=== PATIENT | male | born 1960 | race Caucasian/White ===

== ENCOUNTER 2016-05-20 11:56 | Outpatient (CLI) | payer BC ==
[~2016-05-20] VITALS: Ht 175.3 cm; Wt 85.0 kg
[2016-05-20 17:52] VITALS: BP 115/79; Ht 175.3 cm; Wt 85.0 kg
--- NOTE | 2016-05-20 18:07 | NUR ---
1755 BACK FROM EGD FOOD BOLUS. WAKING UP AND RESP EVEN AND NONLABORED. HOB ELEVATED POST EGD FOOD BOLUS.
--- NOTE | 2016-05-20 18:19 | NUR ---
1815 TOLERATING FULL LIQUIDS.
--- NOTE | 2016-05-20 19:00 | NUR ---
1855 DISCHARGE INSTRUCTIONS GIVEN AND VERBALLY UNDERSTANDS, TOLD TO BE ON PRILOSEC OR NEXIUM DAILY AND TOLD TO CHEW FOOD 20 TIMES. VERBALLY UNDERSTANDS.
--- NOTE | 2016-05-20 19:00 | NUR ---
1845 IV DCD CATHETER INTACT.
--- NOTE | 2016-05-20 19:04 | NUR ---
1900 DISCHARGED TO HOME VIA W/C WITH FRIEND.
--- NOTE | 2016-05-21 10:51 | HP ---
PATIENT: CADENCE HOFFMAN MEDICAL RECORD: [id number] ACCOUNT: [id number] LOCATION:[facility] : 58 ADMISSION DATE: 05/20/16 HISTORY AND PHYSICAL EXAMINATION DATE: 05/20/2016 REFERRING PHYSICIAN: Ashton MELISSA. HISTORY OF PRESENT ILLNESS: The patient is a 55-year-old white male, basically presented to the ER with obstructive esophageal food bolus. He ate steak last night. It became lodged in his lower chest area and has not moved since then. He presented to the ER earlier today and he has not responded to things such as glucagon and nitroglycerin. I was asked to see the patient to consider upper endoscopy. The patient denies any heartburn or weight loss. He has never had endoscopy. He had this happened to him a few years ago while eating shrimp, but it passed on its own. This is the first time he has not been able to bring his ____. PAST MEDICAL HISTORY: Remarkable for HIV. ALLERGIES: No known drug allergies. REVIEW OF SYSTEMS: Noncontributory other than HPI. PHYSICAL EXAMINATION: GENERAL: Reveals a well-developed white male in no acute distress. VITAL SIGNS: Stable, afebrile. CHEST: Clear. HEART: Regular rate and rhythm. ABDOMEN: Soft, nontender. EXTREMITIES: No edema. IMPRESSION: 1. Esophageal food bolus with obstruction of unclear etiology, most likely due to reflux disease, peptic stricture, Schatzki's ring, et cetera. 2. Human immunodeficiency virus positive. PLAN: EGD with probable dilatation. TRANSINT:[id number] Voice Confirmation ID: [id number] DOCUMENT ID: [id number] SIVAN العراقي MD at 1051 CC: [id number] DICTATION DATE: 05/20/16 1718 PICK UP ATTENDANT: 05/20/16 1851 DEP CLI 05/20/16 [id number] [place] [address]
--- NOTE | 2016-05-21 10:51 | PRO ---
PATIENT:CADENCE HOFFMAN MEDICAL RECORD: [id number] : 58 LOCATION:D.OPS ADMISSION DATE: 05/20/16 PROCEDURE PERFORMED BY: SIVAN PELAYO MD DATE OF PROCEDURE: 05/20/2016 ADVERTISEMENT COMPOSITOR: Sivan Pelayo M.D. PROCEDURE: EGD with dilatation and food bolus removal. INDICATION: The patient is a 55-year-old white male, who is HIV positive, who presented to the ER with esophageal obstructive food bolus. He ate steak last night. It became lodged in his lower esophagus. He presented to the ER, but did not respond to conservative measures such as glucagon. He has never had an upper endoscopy. Denies significant reflux symptomatology. He is now for EGD. PREMEDICATION: Taper anesthesia. INSTRUMENT: Olympus video gastroscope. FINDINGS: The endoscope was passed through the oropharynx to the second portion of the duodenum without difficulty. The esophagus was remarkable for an obvious obstructing food bolus in the distal esophagus. I was able to gently push this food down the esophagus and through the GE junction without a whole lot of difficulty. Afterwards, the esophagus was mildly inflamed and he did have a cant-gc-sbmdsdln stricture at the GE junction, which I dilated with a 57-Pashto Savary dilator. The stomach and duodenum were normal. The patient tolerated the procedure well without any complication. IMPRESSION: 1. Esophageal food bolus now status post removal. 2. Btay-tm-tgzqlvmh peptic stricture, now status post Savary dilatation with 57-Pashto size. 3. Normal esophagogastroduodenoscopy. RECOMMENDATIONS: 1. Discharge to home on a PPI such as Prilosec 20 mg daily. 2. Repeat EGD on a p.r.n. basis. TRANSINT:[id number] Voice Confirmation ID: [id number] DOCUMENT ID: [id number] SIVAN PELAYO MD at 1051 CC: [id number] DICTATION DATE: 05/20/16 1728 CUSTOMIZER: 05/21/16 0908 [facility] CLI 05/20/16 [id number] [place] [address]
== END 2016-05-20 19:00 | disposition home or self-care (01) ==
LOC: D.OPS 11:56 → D.ER 11:56 → D.SDCHOLD 17:00 → EDSTATUS 17:15 → D.OPS 19:00
DX: T18.128A Food in esophagus causing other injury, initial encounter (principal); X58.XXXA Exposure to other specified factors, initial encounter; Y93.89 Activity, other specified; Y92.019 Unspecified place in single-family (private) house as the place of occurrence of the external cause; B20 Human immunodeficiency virus [HIV] disease

== ENCOUNTER 2019-08-20 12:35 | Inpatient (IN) | payer MEDICAID ==
[~2019-08-20] VITALS: Ht 175.3 cm; Wt 96.6 kg
[2019-08-20] MEDS ORDERED: BIKTARVY 50-201 EACH PO (12:56)
[2019-08-20] MEDS ORDERED: BACTRIM 400-801 TAB PO (12:56)
[2019-08-20] MEDS ORDERED: HYDROCODONE-IB1 EAC3 PO (12:57)
--- NOTE | 2019-08-20 13:44 | NUR ---
SL SITED LFA AND #1 BC DRAWN, LABELED AT BS AND SENT TO LAB
--- NOTE | 2019-08-20 13:50 | NUR ---
#2 BC DRAWN RAC, LABELED AT BS AND SSENT TO LAB
[2019-08-20 13:55] VITALS: BP 118/73
[2019-08-20 14:08] LABS: BASOPHILS 0.2 % (0-2); EOSINOPHILS 0.2 % (0-7); HEMATOCRIT 44.6 % (42.0-54.0); HEMOGLOBIN 15.7 g/dL (13.5-17.5); IMMATURE GRANULOCYTES 0.6 % (0-5); LYMPHOCYTES 11.9 % (15-50); MCH 31.7 pg (26.0-34.0); MCHC 35.2 g/dL (31.0-37.0); MCV 90.1 fL (80.0-100.0); MEAN PLATELET VOLUME 10.1 fL (7.4-10.4); MONOCYTES 7.8 % (2-11); NEUTROPHILS 79.3 % (40-80); PLATELET COUNT 103 10x3/uL (130-400); RBC 4.95 10x6/uL (4.20-6.10); RDW 12.7 % (11.5-14.5); WBC 5.4 10x3/uL (4.8-10.8)
[2019-08-20 14:17] LABS: APTT 25.5 SECONDS (22.8-39.4); CALC OSMOLALITY 250 mosm/kg (275-300); CALCIUM 7.9 mg/dL (8.5-10.1); CARBON DIOXIDE 22.3 mmol/L (21.0-32.0); CHLORIDE - SERUM 92 mmol/L (98-107); CREATININE - SERUM 1.6 mg/dL (0.6-1.3); GLUCOSE 106 mg/dL (74-106); POTASSIUM - SERUM 3.9 mmol/L (3.5-5.1); PROTIME 13.1 SECONDS (11.6-15.0); SODIUM 123 mmol/L (136-145); UREA NITROGEN 22 mg/dL (7-18); eGFR NON AFRICAN AMERICAN 47 mL/min (90-120)
[2019-08-20 14:32] LABS: ALBUMIN 3.2 g/dL (3.4-5.0); ALKALINE PHOSPHATASE 52 U/L (30-120); ALT (SGPT) 40 U/L (10-68); BILIRUBIN - TOTAL 0.63 mg/dL (0.2-1.3); CKMB 0.4 U/L (0.0-3.6); CREATINE KINASE 427 UL (21-232); PRO BNP 121 pg/mL (0-125); PROTEIN - SERUM 7.9 g/dL (6.4-8.2); TROPONIN-I < 0.017 ng/mL (0.000-0.060)
[2019-08-20 15:27] VITALS: BP 132/75
--- NOTE | 2019-08-20 16:30 | NUR ---
NASAL SWAB COLLECTED FOR COVID 19 SCREENING, LABELED AT BS AND SENT TO LAB
[2019-08-20 16:36] VITALS: BP 95/47
--- NOTE | 2019-08-20 17:17 | NUR ---
ROCEPHIN 1 GM INFUSION COMPLETED @ 6716
[2019-08-20 17:30] VITALS: BP 106/63
--- NOTE | 2019-08-20 18:35 | NUR ---
AZITHROMYCIN 500MG INFUSION COMPLETED @ 1839
--- NOTE | 2019-08-20 18:40 | NUR ---
REPORT TO FABIÁN SHERMAN
[2019-08-20 19:57] VITALS: BMI 28.8
[2019-08-20] MEDS ORDERED: LIPITOR20 MG PO (19:57)
[2019-08-21 09:15] VITALS: BP 128/58
[2019-08-21 11:56] VITALS: BP 118/75
[2019-08-21 13:07] LABS: BASOPHILS 0.2 % (0-2); EOSINOPHILS 0.2 % (0-7); HEMATOCRIT 37.7 % (42.0-54.0); HEMOGLOBIN 13.1 g/dL (13.5-17.5); IMMATURE GRANULOCYTES 0.5 % (0-5); LYMPHOCYTES 11.2 % (15-50); MCH 31.4 pg (26.0-34.0); MCHC 34.7 g/dL (31.0-37.0); MCV 90.4 fL (80.0-100.0); MEAN PLATELET VOLUME 10.8 fL (7.4-10.4); MONOCYTES 3.4 % (2-11); NEUTROPHILS 84.5 % (40-80); RBC 4.17 10x6/uL (4.20-6.10); RDW 12.7 % (11.5-14.5); WBC 4.4 10x3/uL (4.8-10.8)
[2019-08-21 13:10] LABS: BASOS 0 % (Not Estab.); CD4 - % CD4 POS. LYMPH 24.8 % (30.8-58.5); CD4 - ABSOLUTE CD4 HELPER 149 /uL (359-1519); EOS 0 % (Not Estab.); HEMATOCRIT 41.4 % (37.5-51.0); HEMATOLOGY COMMENTS Note: (()); HEMOGLOBIN 14.5 g/dL (13.0-17.7); LYMPHS 10 % (Not Estab.); LYMPHS (ABSOLUTE) 0.6 x10E3/uL (0.7-3.1); MCH 31.1 pg (26.6-33.0); MCV 89 fL (79-97); MONOCYTES 4 % (Not Estab.); MONOCYTES (ABSOLUTE) 0.2 x10E3/uL (0.1-0.9); NEUTROPHILS 85 % (Not Estab.); PLATELETS 98 x10E3/uL (150-450); RBC 4.66 x10E6/uL (4.14-5.80); RDW 12.9 % (11.6-15.4); WBC 5.9 x10E3/uL (3.4-10.8)
[2019-08-21 13:16] LABS: PLATELET COUNT 73 10x3/uL (130-400)
[2019-08-21 13:24] LABS: ANION GAP 10.7 mmol/L (8-16); CARBON DIOXIDE 24.2 mmol/L (21.0-32.0); CREATININE - SERUM 1.7 mg/dL (0.6-1.3); MAGNESIUM - SERUM 1.9 mg/dL (1.8-2.4); PHOSPHOROUS 2.2 mg/dL (2.5-4.9); POTASSIUM - SERUM 3.9 mmol/L (3.5-5.1)
[2019-08-21 13:39] LABS: C-REACTIVE PROTEIN 17.8 mg/dL (0.0-0.9)
[2019-08-21 13:40] VITALS: BMI 28.8
[2019-08-21 13:58] LABS: BACTERIA FEW /hpf (NEGATIVE); BILIRUBIN NEGATIVE (NEGATIVE); EPITHELIAL CELLS OCC /hpf (0-5); GLUCOSE NEGATIVE (NEGATIVE); KETONE NEGATIVE (NEGATIVE); NITRITE NEGATIVE (NEGATIVE); RED CELLS - URINE 0-5 /hpf (0-5); SPECIFIC GRAVITY 1.025 (1.005-1.020); UROBILINOGEN NORMAL (NORMAL); WHITE CELLS - URINE RARE /hpf (NEGATIVE)
[2019-08-21 14:39] LABS: ERYTHROCYTE SEDIMENTATION RATE 23 mm/hr (0-20)
[2019-08-21 14:44] LABS: % SATURATION 13 % (15-55); IRON 21 ug/dl (35-150); TOTAL IRON BIND CAPACITY 153 ug/dl (260-445); UNSAT IRON BIND CAPACITY 132 ug/dl (150-375)
[2019-08-21 14:45] LABS: PLATELET ESTIMATE DECREASED; ROULEAUX OCC
[2019-08-21 16:33] VITALS: BP 106/61
--- NOTE | 2019-08-21 19:00 | NUR ---
EVENING ROUNDS COMPLETE. PT LAYING IN BED. NO SIGNS OF DISTRESS. PT DENIES ANY PAIN OR NEEDS AT THIS TIME. CL IN REACH, BED IN LOWEST POSITION.
--- NOTE | 2019-08-21 19:01 | NUR ---
NS INFUSING @ 100 ML/HR UPON ADMIT TO [facility] @ 3519
[2019-08-21 20:00] VITALS: BP 143/71
[2019-08-22] VITALS: BP 104/56
[2019-08-22 04:00] VITALS: BP 119/63
[2019-08-22 07:04] LABS: BASOPHILS 0.7 % (0-2); EOSINOPHILS 0.4 % (0-7); HEMATOCRIT 36.5 % (42.0-54.0); HEMOGLOBIN 12.7 g/dL (13.5-17.5); IMMATURE GRANULOCYTES 4.5 % (0-5); LYMPHOCYTES 8.1 % (15-50); MCH 31.1 pg (26.0-34.0); MCHC 34.8 g/dL (31.0-37.0); MCV 89.5 fL (80.0-100.0); MONOCYTES 2.7 % (2-11); NEUTROPHILS 83.6 % (40-80); RBC 4.08 10x6/uL (4.20-6.10)
[2019-08-22 07:16] LABS: ANION GAP 12.1 mmol/L (8-16); BILIRUBIN - TOTAL 0.37 mg/dL (0.2-1.3); CARBON DIOXIDE 20.7 mmol/L (21.0-32.0); CREATININE - SERUM 1.6 mg/dL (0.6-1.3); MAGNESIUM - SERUM 1.8 mg/dL (1.8-2.4); PHOSPHOROUS 2.1 mg/dL (2.5-4.9); POTASSIUM - SERUM 3.8 mmol/L (3.5-5.1)
[2019-08-22 07:23] LABS: WBC 5.6 10x3/uL (4.8-10.8)
[2019-08-22 07:24] LABS: ALBUMIN 2.3 g/dL (3.4-5.0); PLATELET COUNT 48 10x3/uL (130-400); PROTEIN - SERUM 5.9 g/dL (6.4-8.2)
[2019-08-22 07:25] LABS: CALCIUM 6.8 mg/dL (8.5-10.1)
[2019-08-22 08:30] LABS: PLATELET ESTIMATE DECREASED
[2019-08-22 08:32] LABS: ROULEAUX OCC
--- NOTE | 2019-08-22 08:48 | NUR ---
CRITICAL PLT AND CALCIUM RESULTS RELAYED TO MINDY BIRTHING NURSE WHILE ON FLOOR.
[2019-08-22 09:25] VITALS: BP 135/66
--- NOTE | 2019-08-22 12:19 | MORECARE ---
CASE MANAGEMENT DISCHARGE SUMMARY PATIENT: CADENCE HOFFMAN UNIT: [id number] ADM DATE: 08/20/19 AGE: 59 : 58 SEX: M ROOM/BED: D.2134 AUTHOR: ROSSI WHITE PHYSICIAN: REFERRING PHYSICIAN: CARINA KERN MD DATE OF SERVICE: 08/22/19 Discharge Plan Patient Name: CAEDNCE HOFFMAN [facility] [facility] 1960 Planned Disposition: Home or Self Care Anticipated Discharge Date: Discharge Date: Expected LOS: Initial Reviewer: [email or web address] Initial Review Date: 08/20/2019 Generated: 08/22/19 1:19 pm DCPIA - Discharge Planning Initial Assessment Updated by [email or web address]: Angella Maher on 08/22/19 12:13 pm * Is the patient Alert and Oriented? Yes * How many steps to enter\exit or inside your home? 3/0 * PCP ARNEL * Pharmacy [facility]- * Preadmission Environment Home with Family * ADLs Independent * Equipment Nebulizer * List name and contact numbers for known caregivers / representatives who currently or will assist patient after discharge: BETTY CHAMBERLAIN () [phone] * Verbal permission to speak to the caregivers and representatives has been obtained from the patient. Yes * Community resources currently utilized None * Additional services required to return to the preadmission environment? Yes * Can the patient safely return to the preadmission environment? Yes * Has this patient been hospitalized within the prior 30 days at any hospital? No Patient Name: CADENCE HOFFMAN Page 06354 at 1219 All edits/amendments must be made on the electronic document DICTATION DATE: 08/22/19 1219 VASCULAR TECHNOLOGIST SONOGRAPHER: RADHA 08/22/19 1219 RPT#: [id number] DC DATE: STATUS: ADM IN [facility] [address] [place] [address] END OF REPORT
--- NOTE | 2019-08-22 12:49 | MORECARE ---
CASE MANAGEMENT DISCHARGE SUMMARY PATIENT: CADENCE ACEVES UNIT: [id number] ADM DATE: 08/20/19 AGE: 59 : 58 SEX: M ROOM/BED: D.0446 AUTHOR: CHRISTOPHERDOC PHYSICIAN: REFERRING PHYSICIAN: CARINA KERN MD DATE OF SERVICE: 08/22/19 Discharge Plan Patient Name: CADENCE ACEVES Facility: [facility]:[place] : 1960 Planned Disposition: Home or Self Care Anticipated Discharge Date: Discharge Date: Expected LOS: Initial Reviewer: [email or web address] Initial Review Date: 08/20/2019 Generated: 08/22/19 1:49 pm Comments DCP- Discharge Planning Updated by [email or web address]: Angella Maher on 08/22/19 11:[address] Patient Name: CADENCE ACEVES Admission Status: ER Accout number: [id number] Admission Date: 08-20-2019 : 1960 Admission Diagnosis:PNEUMONIA, UNSPECIFIED ORGANISM Attending: CARINA KERN Current LOS: 2 Anticipated DC Date: Planned Disposition: Home or Self Care Primary Insurance: [facility] PRIVATE OPTIONS ANA PAULA Discharge Planning Comments: ANTICIPATED DC NEEDS: POSSIBLE HOME HEALTH, AND NEBULIZER/O2 CM met with patient. to complete initial dc planning assessment. CM educated patient on the CM role and verbal consent given by patient to complete assessment. CM verified patient's address, phone number, and emergency contact phone numbers. The current physical address of the patient is [address] [place] [address], [address]. Patient lives at home with his Betty Chamberlain . Mr Aceves has a cane, and nebulizer at home. States he has never used breathing treatments at home. He inherited the nebulizer from his mother when she passed. States he has over 300 units of Albuterol at home. Provided teaching about using albuterol safely. Patient states he is weak and feels he may need some extra help at home. [facility] signed for [facility], and [facility] for the anticipated need of home O2 and nebs. [facility] [phone] and [facility] [phone]. CM faxed referral to [facility] and [facility]. At discharge patient plans to return home and feels this is a safe discharge. CM will continue to follow and will assist as needed with dc plans/needs. Drop Board Worker: Angella Maher DCPIA - Discharge Planning Initial Assessment Updated by [email or web address]: Angella Maher on 08/22/19 12:13 pm * Is the patient Alert and Oriented? Yes * How many steps to enter\exit or inside your home? 3/0 * PCP ARNEL * [facility]- * Preadmission Environment Home with Family * ADLs Independent * Equipment Nebulizer * List name and contact numbers for known caregivers / representatives who currently or will assist patient after discharge: BETTY CHAMBERLAIN () [phone] * Verbal permission to speak to the caregivers and representatives has been obtained from the patient. Yes * Community resources currently utilized None * Additional services required to return to the preadmission environment? Yes * Can the patient safely return to the preadmission environment? Yes * Has this patient been hospitalized within the prior 30 days at any hospital? No Last DP export: 08/22/19 11:19 a Patient Name: CADENCE ACEVES Page [phone] at 1249 All edits/amendments must be made on the electronic document DICTATION DATE: 08/22/191248 HEALTH INFORMATION DIRECTOR: RADHA 08/22/19 1249 RPT#: [id number] DC DATE: STATUS: ADM IN [facility] [address] [place] [address] END OF REPORT
--- NOTE | 2019-08-22 13:08 | MORECARE ---
CASE MANAGEMENT DISCHARGE SUMMARY PATIENT: CADENCE ACEVES UNIT: [id number] ADM DATE: 08/20/19 AGE: 59 : 58 SEX: M ROOM/BED: D.6939 AUTHOR: CHRISTOPHERDOC PHYSICIAN: REFERRING PHYSICIAN: CARINA KERN MD DATE OF SERVICE: 08/22/19 Discharge Plan Patient Name: CADENCE ACEVES Facility: [facility]:[place] : 1960 Planned Disposition: Home or Self Care Anticipated Discharge Date: Discharge Date: Expected LOS: Initial Reviewer: [email or web address] Initial Review Date: 08/20/2019 Generated: 08/22/19 2:07 pm Comments DCP- Discharge Planning Updated by [email or web address]: Angella Maher on 08/22/19 11:[address] Patient Name: CADENCE ACEVES Admission Status: ER Accout number: [id number] Admission Date: 08-20-2019 : 1960 Admission Diagnosis:PNEUMONIA, UNSPECIFIED ORGANISM Attending: CARINA KERN Current LOS: 2 Anticipated DC Date: Planned Disposition: Home or Self Care Primary Insurance: [facility] PRIVATE OPTIONS ANA PAULA Discharge Planning Comments: ANTICIPATED DC NEEDS: POSSIBLE HOME HEALTH, AND NEBULIZER/O2 CM met with patient. to complete initial dc planning assessment. CM educated patient on the CM role and verbal consent given by patient to complete assessment. CM verified patient's address, phone number, and emergency contact phone numbers. The current physical address of the patient is [address] [place] [address], [address]. Patient lives at home with his Betty Chamberlain . Mr Aceves has a cane, and nebulizer at home. States he has never used breathing treatments at home. He inherited the nebulizer from his mother when she passed. States he has over 300 units of Albuterol at home. Provided teaching about using albuterol safely. Patient states he is weak and feels he may need some extra help at home. [facility] signed for [facility], and [facility] for the anticipated need of home O2 and nebs. [facility] [phone] and [facility] [phone]. CM faxed referral to [facility] and [facility]. At discharge patient plans to return home and feels this is a safe discharge. CM will continue to follow and will assist as needed with dc plans/needs. Director Of Instructional Technology: Angella Maher DCPIA - Discharge Planning Initial Assessment Updated by [email or web address]: Angella Maher on 08/22/19 12:13 pm * Is the patient Alert and Oriented? Yes * How many steps to enter\exit or inside your home? 3/0 * PCP ARNEL * [facility] * Preadmission Environment Home with Family * ADLs Independent * Equipment Nebulizer * List name and contact numbers for known caregivers / representatives who currently or will assist patient after discharge: BETTY CHAMBERLAIN () [phone] * Verbal permission to speak to the caregivers and representatives has been obtained from the patient. Yes * Community resources currently utilized None * Additional services required to return to the preadmission environment? Yes * Can the patient safely return to the preadmission environment? Yes * Has this patient been hospitalized within the prior 30 days at any hospital? No External Providers External Provider: [facility] [facility] Next Contact Date: Service Request Date: Service Type: Resolution: Reviewer: Comments: External Provider: [facility] Next Contact Date: Service Request Date: Service Type: Resolution: Reviewer: Comments: Last DP export: 08/22/19 11:49 a Patient Name: CADENCE ACEVES Page [phone] at 1308 All edits/amendments must be made on the electronic document DICTATION DATE: 08/22/19 1307 HOME CARE AIDE: RADHA 08/22/19 1307 RPT#: [id number] DC DATE: STATUS: ADM IN [facility] [address] [place] [address] END OF REPORT
[2019-08-22 13:45] VITALS: BP 128/77
--- NOTE | 2019-08-22 15:39 | NUR ---
PT WITH SECOND BOUT OF EXPLOSIVE DIARRHEA. MESSED FROM BED TO BATHROOM. STATES SLIPPED AND FELL WHILE WALKING. PT SITTING ON SIDE OF BED WHEN ARRIVED TO ANSWER CALL LIGHT. PT WITHOUT ANY OBVIOUS SIGNS OF INJURY. FLOOR CLEANED AND GOWN CHANGED. BSC IN ROOM NOW, SOCKS APPLIED. WILL PLACE BED ALARM.
[2019-08-22 17:51] VITALS: BP 111/66
[2019-08-22 20:00] VITALS: BP 132/76
[2019-08-23] VITALS: BP 94/49
[2019-08-23 04:00] VITALS: BP 130/77
[2019-08-23 08:04] VITALS: BP 127/67
[2019-08-23 09:13] LABS: BASOPHILS 0.5 % (0-2); EOSINOPHILS 0 % (0-7); HEMATOCRIT 38.1 % (42.0-54.0); HEMOGLOBIN 13.5 g/dL (13.5-17.5); IMMATURE GRANULOCYTES 1.1 % (0-5); LYMPHOCYTES 10.8 % (15-50); MCH 31.4 pg (26.0-34.0); MCHC 35.4 g/dL (31.0-37.0); MCV 88.6 fL (80.0-100.0); MEAN PLATELET VOLUME 11.2 fL (7.4-10.4); MONOCYTES 5.4 % (2-11); NEUTROPHILS 82.2 % (40-80); RDW 13.3 % (11.5-14.5)
[2019-08-23 09:24] LABS: WBC 3.7 10x3/uL (4.8-10.8)
[2019-08-23 09:27] LABS: PLATELET COUNT 41 10x3/uL (130-400)
[2019-08-23 09:50] LABS: ALBUMIN 2.2 g/dL (3.4-5.0); ANION GAP 13.8 mmol/L (8-16); BILIRUBIN - TOTAL 0.26 mg/dL (0.2-1.3); CARBON DIOXIDE 17.8 mmol/L (21.0-32.0); CREATININE - SERUM 1.6 mg/dL (0.6-1.3); POTASSIUM - SERUM 3.6 mmol/L (3.5-5.1)
[2019-08-23 09:57] LABS: PHOSPHOROUS 1.4 mg/dL (2.5-4.9)
[2019-08-23 10:46] LABS: PLATELET ESTIMATE DECREASED
[2019-08-23 12:49] VITALS: BP 122/66
--- NOTE | 2019-08-23 13:15 | NUR ---
Nutrition Follow-up: Poor PO intake. Drinking 1-2 Boost/day. Denies N/V but c/o diarrhea. Noted CDT ordered. Diet: Cardiac Wt: 211# (08/21); 195# (08/19 - stated) Labs noted: Na 124, Glu 108, Ca 7.0, PO4 1.4, Alb 2.2 Meds noted: Pepcid, NS @ 100, electrolyte protocol -Encourage PO intake and honor food preferences within diet restrictions. -Monitor wt; noted daily wts ordered. -RD following.
[2019-08-23 17:03] VITALS: BP 134/66
--- NOTE | 2019-08-23 18:55 | NUR ---
REPORT RECEIVED, PT CARE ASSUMED. INTRODUCED SELF AND WROTE NAME ON BOARD. PT SITTING UP IN BED, USING HIS CELLPHONE, AAOX4. REQUESTED WATER AND LEMON [employer] [place] [employer], PROVIDED. DENIES ANY OTHER NEEDS AT THIS TIME. BED IN LOWEST, SRX2, CALL LIGHT AND URINAL WITHIN REACH. BED ALARM ON AND FUNCTIONING. WILL CTM.
[2019-08-23 20:30] VITALS: BP 130/73
[2019-08-24 00:30] VITALS: BP 102/48
[2019-08-24 04:30] VITALS: BP 111/69
[2019-08-24 05:53] LABS: BASOPHILS 0.5 % (0-2); EOSINOPHILS 0 % (0-7); HEMATOCRIT 35.9 % (42.0-54.0); HEMOGLOBIN 12.7 g/dL (13.5-17.5); LYMPHOCYTES 14.6 % (15-50); MCH 31.2 pg (26.0-34.0); MCHC 35.4 g/dL (31.0-37.0); MCV 88.2 fL (80.0-100.0); MEAN PLATELET VOLUME 11.3 fL (7.4-10.4); MONOCYTES 6.8 % (2-11); NEUTROPHILS 77.1 % (40-80); RBC 4.07 10x6/uL (4.20-6.10); RDW 13.3 % (11.5-14.5)
[2019-08-24 05:54] LABS: PLATELET COUNT 48 10x3/uL (130-400)
[2019-08-24 06:42] LABS: ALBUMIN 2.1 g/dL (3.4-5.0); ANION GAP 13.5 mmol/L (8-16); BILIRUBIN - TOTAL 0.26 mg/dL (0.2-1.3); CARBON DIOXIDE 18.3 mmol/L (21.0-32.0); CREATININE - SERUM 1.7 mg/dL (0.6-1.3); MAGNESIUM - SERUM 2.1 mg/dL (1.8-2.4); POTASSIUM - SERUM 3.8 mmol/L (3.5-5.1); PROTEIN - SERUM 5.8 g/dL (6.4-8.2)
[2019-08-24 06:45] LABS: CALCIUM 6.8 mg/dL (8.5-10.1); PHOSPHOROUS 1.3 mg/dL (2.5-4.9)
--- NOTE | 2019-08-24 08:18 | NUR ---
PT LAYING SUPINE, RR EVEN AND UNLABORED ON 2.5L NC. NO DISTRESS NOTED. CALL LIGHT WITHIN REACH. BED IN LOWEST POSITION. PLATELET COUNT THIS AM IS LOW. REPORTED TO APN. ADRIENNE GUILLEN
[2019-08-24 08:29] VITALS: BP 124/74
--- NOTE | 2019-08-24 13:19 | NUR ---
I have reviewed this patient and I concur with the Shift Assessment completed by the Licensed Practical Nurse today this shift.
[2019-08-24 13:56] VITALS: BP 87/36
[2019-08-24 18:25] VITALS: BP 107/71
--- NOTE | 2019-08-24 18:55 | NUR ---
BEDSIDE REPORT RECEIVED, PT CARE ASSUMED. WROTE NAME ON BOARD. PT LYING IN BED WITH EYES CLOSED, RR EVEN AND NONLABORED, NO S/S OF DISTRESS, AROUSES EASILY TO VOICE. DENIES ANY NEEDS AT THIS TIME. BED IN LOWEST, SRX3, CALL LIGHT AND URINAL WITHIN REACH. WILL CTM.
[2019-08-24 20:30] VITALS: BP 109/75
[2019-08-25 00:30] VITALS: BP 101/75
[2019-08-25 04:30] VITALS: BP 130/79
[2019-08-25 06:25] LABS: BASOPHILS 0.4 % (0-2); EOSINOPHILS 0.2 % (0-7); HEMATOCRIT 37.1 % (42.0-54.0); IMMATURE GRANULOCYTES 1.1 % (0-5); LYMPHOCYTES 12.3 % (15-50); MCV 88.5 fL (80.0-100.0); MEAN PLATELET VOLUME 10.6 fL (7.4-10.4); MONOCYTES 6.8 % (2-11); NEUTROPHILS 79.2 % (40-80); RBC 4.19 10x6/uL (4.20-6.10); RDW 14.1 % (11.5-14.5); WBC 4.6 10x3/uL (4.8-10.8)
[2019-08-25 06:40] LABS: PLATELET COUNT 48 10x3/uL (130-400)
[2019-08-25 06:42] LABS: ALBUMIN 2.1 g/dL (3.4-5.0); ANION GAP 13.5 mmol/L (8-16); BILIRUBIN - TOTAL 0.27 mg/dL (0.2-1.3); CARBON DIOXIDE 19.3 mmol/L (21.0-32.0); CREATININE - SERUM 1.8 mg/dL (0.6-1.3); MAGNESIUM - SERUM 2.2 mg/dL (1.8-2.4); POTASSIUM - SERUM 3.8 mmol/L (3.5-5.1)
[2019-08-25 06:44] LABS: CALCIUM 6.8 mg/dL (8.5-10.1); PHOSPHOROUS 1.5 mg/dL (2.5-4.9)
[2019-08-25 07:01] LABS: PLATELET ESTIMATE DECREASED
--- NOTE | 2019-08-25 07:40 | NUR ---
PT SITTING UP IN BED, RR EVEN AND UNLABORED ON 3L NC. DENIES NEEDS OR PAIN AT THIS TIME. CALL LIGHT WITHIN REACH. BED IN LOWEST POSITION. WILL CONTINUE TO MONITOR.
[2019-08-25 08:48] VITALS: BP 127/74
--- NOTE | 2019-08-25 11:45 | NUR ---
I have reviewed this patient and I concur with the Shift Assessment completed by the Licensed Practical Nurse today this shift.
[2019-08-25 12:59] VITALS: BP 118/69
[2019-08-25 18:04] VITALS: BP 116/56
--- NOTE | 2019-08-25 19:05 | NUR ---
BEDSIDE REPORT RECEIVED, PT CARE ASSUMED. WROTE NAME ON BOARD. PT SITTING UP IN BED, WATCHING TV, AAOX4. REQUESTING BRIEFS, PROVIDED. DENIES ANY OTHER NEEDS AT THIS TIME. BED IN LOWEST, SRX2, CALL LIGHT AND URINAL WITHIN REACH. WILL CTM.
[2019-08-25 20:00] VITALS: BP 115/68
[2019-08-26] VITALS: BP 112/67
[2019-08-26 04:00] VITALS: BP 133/63
[2019-08-26 07:09] LABS: ALBUMIN 1.9 g/dL (3.4-5.0); ANION GAP 11.5 mmol/L (8-16); BILIRUBIN - TOTAL 0.25 mg/dL (0.2-1.3); CARBON DIOXIDE 20.7 mmol/L (21.0-32.0); MAGNESIUM - SERUM 2.5 mg/dL (1.8-2.4); POTASSIUM - SERUM 4.2 mmol/L (3.5-5.1); PROTEIN - SERUM 5.5 g/dL (6.4-8.2)
--- NOTE | 2019-08-26 07:10 | NUR ---
REPORT RECIEVED. PT LYING ON LEFT SIDE. RR EVEN AND NONLABORED ON 3L NC. PT HAS A L FA PIV INFUSING NS @100. BED LOCKED AND IN LOWEST POSITION, CALL LIGHT WITHIN REACH. WILL CTM
[2019-08-26 07:11] LABS: CREATININE - SERUM 1.3 mg/dL (0.6-1.3); PHOSPHOROUS 2.4 mg/dL (2.5-4.9)
[2019-08-26 08:07] LABS: BASOPHILS 0.7 % (0-2); EOSINOPHILS 0 % (0-7); HEMATOCRIT 34.1 % (42.0-54.0); HEMOGLOBIN 12.1 g/dL (13.5-17.5); IMMATURE GRANULOCYTES 0.9 % (0-5); LYMPHOCYTES 21.7 % (15-50); MCH 31.3 pg (26.0-34.0); MCHC 35.5 g/dL (31.0-37.0); MCV 88.1 fL (80.0-100.0); MEAN PLATELET VOLUME 11.9 fL (7.4-10.4); MONOCYTES 5.5 % (2-11); NEUTROPHILS 71.2 % (40-80); RBC 3.87 10x6/uL (4.20-6.10); RDW 14.2 % (11.5-14.5); WBC 5.7 10x3/uL (4.8-10.8)
[2019-08-26 08:11] LABS: PLATELET COUNT 45 10x3/uL (130-400)
[2019-08-26 10:37] VITALS: BP 135/78
[2019-08-26 14:17] VITALS: BP 135/78
--- NOTE | 2019-08-26 16:38 | NUR ---
I have reviewed this patient and I concur with the Shift Assessment completed by the Licensed Practical Nurse today this shift.
--- NOTE | 2019-08-26 19:00 | NUR ---
EVENING ROUNDS COMPLETE. PT SITTING UP IN BED. NO SIGNS OF DISTRESS. PT DENIES ANY PAIN AT THIS TIME. ASSITED PT TO BATHROOM, STEADY GATE. PT DENIES ANY OTHER NEEDS AT THIS TIME. CL IN REACH, BED IN LOWEST POSITION.
[2019-08-26 20:00] VITALS: BP 123/75
[2019-08-27] VITALS: BP 139/79
[2019-08-27 04:00] VITALS: BP 140/77
[2019-08-27 06:44] LABS: ANION GAP 9.5 mmol/L (8-16); BILIRUBIN - TOTAL 0.33 mg/dL (0.2-1.3); CARBON DIOXIDE 23.3 mmol/L (21.0-32.0); CREATININE - SERUM 1.3 mg/dL (0.6-1.3); POTASSIUM - SERUM 3.8 mmol/L (3.5-5.1)
[2019-08-27 06:50] LABS: BASOPHILS 0.3 % (0-2); EOSINOPHILS 0 % (0-7); HEMATOCRIT 32.9 % (42.0-54.0); HEMOGLOBIN 11.6 g/dL (13.5-17.5); IMMATURE GRANULOCYTES 1.1 % (0-5); LYMPHOCYTES 20.3 % (15-50); MCH 31.1 pg (26.0-34.0); MCHC 35.3 g/dL (31.0-37.0); MCV 88.2 fL (80.0-100.0); MONOCYTES 8.8 % (2-11); NEUTROPHILS 69.5 % (40-80); PLATELET COUNT 53 10x3/uL (130-400); RBC 3.73 10x6/uL (4.20-6.10); RDW 14.4 % (11.5-14.5)
[2019-08-27 06:51] LABS: WBC 7.9 10x3/uL (4.8-10.8)
[2019-08-27 06:52] LABS: CALCIUM 6.7 mg/dL (8.5-10.1)
--- NOTE | 2019-08-27 07:43 | NUR ---
REPORT RECIEVED. PT RESTING IN SEMI FOWLERS POSITION. RR EVEN AND NONLABORED ON 2L NC. PT HAS A L FA PIV INFUSING NS @ 100. BED LOCKED AND IN LOWEST POSITION, CALL LIGHT WITHIN REACH. WILL CTM
[2019-08-27 09:30] VITALS: BP 134/71
[2019-08-27 11:05] LABS: PLATELET ESTIMATE DECREASED; PLATELET MORPHOLOGY NORMAL PLT MORPH
[2019-08-27 11:52] VITALS: BP 121/71
--- NOTE | 2019-08-27 13:38 | NUR ---
Rehab Note- Acute Inpatient Rehab prescreen order received. The patient has BC and will need an OT Eval- spole with TAURUS Snow for OT Eval. Also the patient is is desating with any activity & has been refusing therapy. Will have to be willing to participate in the required 3hrs/day of therapy for inpatient acute rehab stay. Will continue to follow at this time. Thank you for this referral! Naz Valenzuela RN Clinical Liaison, [facility] Rehab
--- NOTE | 2019-08-27 13:45 | NUR ---
Nutrition Follow-up: Pt sleeping soundly at time of visit this AM; RD did not disturb. Chart reviewed. PO intake seems to have improved. Ate ~75% of breakfast this AM. -CDT. Diet: Cardiac PO intake: 50-100% No new wt; last wt: 211# (08/21) Labs noted: Glu 133, Ca 6.7, Alb 2.0 Meds noted: Prednisone, Pepcid, NS @ 100, electrolyte protocol -Encourage PO intake and honor food preferences within diet restrictions. -Offer nutrition supplements. -Need new wt; noted daily wts ordered. -RD following.
--- NOTE | 2019-08-27 15:43 | NUR ---
I have reviewed this patient and I concur with the Shift Assessment completed by the Licensed Practical Nurse today this shift.
[2019-08-27 17:47] VITALS: BP 133/82
--- NOTE | 2019-08-27 19:29 | NUR ---
EVENING ROUNDS COMPLETE. PT LAYING IN BED. NO SIGNS OF DISTRESS. PT DENIES ANY PAIN OR NEEDS AT THIS TIME. AAOX4. CL IN REACH, BED IN LOWEST POSITION.
[2019-08-27 20:00] VITALS: BP 133/75
[2019-08-28] VITALS: BP 136/47
[2019-08-28 04:00] VITALS: BP 127/63
[2019-08-28 06:31] LABS: BASOPHILS 0.1 % (0-2); EOSINOPHILS 0 % (0-7); HEMATOCRIT 34.9 % (42.0-54.0); IMMATURE GRANULOCYTES 1.5 % (0-5); LYMPHOCYTES 31.1 % (15-50); MCH 30.9 pg (26.0-34.0); MCHC 34.4 g/dL (31.0-37.0); MCV 89.9 fL (80.0-100.0); MEAN PLATELET VOLUME 11.1 fL (7.4-10.4); MONOCYTES 9.8 % (2-11); NEUTROPHILS 57.5 % (40-80); PLATELET COUNT 62 10x3/uL (130-400); RBC 3.88 10x6/uL (4.20-6.10); WBC 7.3 10x3/uL (4.8-10.8)
[2019-08-28 07:08] LABS: ALBUMIN 2.1 g/dL (3.4-5.0); BILIRUBIN - TOTAL 0.35 mg/dL (0.2-1.3); CARBON DIOXIDE 20.5 mmol/L (21.0-32.0); CREATININE - SERUM 1.1 mg/dL (0.6-1.3); PROTEIN - SERUM 5.3 g/dL (6.4-8.2)
[2019-08-28 07:17] LABS: ANION GAP 13.1 mmol/L (8-16); POTASSIUM - SERUM 4.6 mmol/L (3.5-5.1)
[2019-08-28 09:25] VITALS: BP 136/68
[2019-08-28 13:15] VITALS: BP 159/88
--- NOTE | 2019-08-28 16:31 | NUR ---
OT NOTE: PT COMPLETED SUPINE TO SIT WITH SBA. PT COMPLETED SIT TO STAND WITH SBA. PT COMPLETED ADL MOB WITH CGA. PT COMPLETED TOILETING WITH SBA. PT COMPLETED HYGIENE TASKS WITH SBA. PT COMPLETED UE AROM WITH FUNCTIONAL TASKS. PT IS SOB AND REQUIRED REST BREAKS. [phone] THANK YOU,JEANETTE NOLASCO
[2019-08-28 17:08] LABS: OVA + PARASITE EXAM Final report (())
[2019-08-28 17:12] VITALS: Ht 175.3 cm; Wt 96.6 kg
[2019-08-28 17:26] VITALS: BP 133/76
--- NOTE | 2019-08-28 19:57 | NUR ---
EVENING ROUNDS COMPLETE. PT SITTING UP IN BED. AAOX4. NO SIGNS OF DISTRESS. PT DENIES ANY PAIN OR NEEDS AT THIS TIME. CL IN REACH, BED IN LOWEST POSITION.
[2019-08-28 20:00] VITALS: BP 140/76
[2019-08-29] VITALS (10 sets, daily range): BP systolic 105–147; BP diastolic 55–88
[2019-08-29 06:25] LABS: BASOPHILS 0.2 % (0-2); EOSINOPHILS 0 % (0-7); HEMATOCRIT 33.9 % (42.0-54.0); HEMOGLOBIN 11.8 g/dL (13.5-17.5); IMMATURE GRANULOCYTES 1.4 % (0-5); LYMPHOCYTES 30.1 % (15-50); MCH 31.2 pg (26.0-34.0); MCHC 34.8 g/dL (31.0-37.0); MCV 89.7 fL (80.0-100.0); MEAN PLATELET VOLUME 11.1 fL (7.4-10.4); MONOCYTES 13.6 % (2-11); NEUTROPHILS 54.7 % (40-80); PLATELET COUNT 74 10x3/uL (130-400); RBC 3.78 10x6/uL (4.20-6.10); RDW 14.9 % (11.5-14.5); WBC 8.1 10x3/uL (4.8-10.8)
[2019-08-29 06:38] LABS: ALBUMIN 2.2 g/dL (3.4-5.0); ANION GAP 9.7 mmol/L (8-16); BILIRUBIN - TOTAL 0.48 mg/dL (0.2-1.3); CARBON DIOXIDE 22.7 mmol/L (21.0-32.0); CREATININE - SERUM 1.2 mg/dL (0.6-1.3); POTASSIUM - SERUM 4.4 mmol/L (3.5-5.1); PROTEIN - SERUM 5.4 g/dL (6.4-8.2)
[2019-08-29 06:51] LABS: CALCIUM 6.9 mg/dL (8.5-10.1)
[2019-08-29 07:05] LABS: APTT 26.3 SECONDS (22.8-39.4); INR 1.2 (0.85-1.17); PROTIME 15.1 SECONDS (11.6-15.0)
[2019-08-29 08:11] LABS: HEPATITIS C ANTIBODY <0.1 S/CO RAT (0.0-0.9)
[2019-08-29 09:10] LABS: PLATELET ESTIMATE DECREASED; ROULEAUX OCC; SMUDGE CELLS OCC
[2019-08-29 14:09] LABS: ANA REFLEX - DIRECT Negative (Negative)
--- NOTE | 2019-08-29 19:17 | NUR ---
REPORT RECEIVED, WILL CONTINUE POC. PATIENT IS AAOX4, SITTING UP EATING DINNER. NO S/S OF DISTRESS OBSERVED, RR EVEN AND UNLABORED ON 1.5L O2 VIA NC. PIV TO LT FA INFUSING NS @ 100. PATIENT DENIES NEEDS AT THIS THIS TIME. CL IN REACH, BED LOCKED AND LOWERED. WILL CTM.
[2019-08-30] VITALS: BP 136/80
--- NOTE | 2019-08-30 01:41 | NUR ---
I have reviewed this patient and I concur with the Shift Assessment completed by the Licensed Practical Nurse today this shift.
[2019-08-30 04:00] VITALS: BP 136/82
[2019-08-30 04:57] LABS: BASOPHILS 0.3 % (0-2); EOSINOPHILS 0 % (0-7); HEMATOCRIT 34.9 % (42.0-54.0); HEMOGLOBIN 11.6 g/dL (13.5-17.5); IMMATURE GRANULOCYTES 2.5 % (0-5); LYMPHOCYTES 35.7 % (15-50); MCH 30.4 pg (26.0-34.0); MCHC 33.2 g/dL (31.0-37.0); MCV 91.4 fL (80.0-100.0); MEAN PLATELET VOLUME 11.4 fL (7.4-10.4); MONOCYTES 10.7 % (2-11); NEUTROPHILS 50.8 % (40-80); PLATELET COUNT 74 10x3/uL (130-400); RBC 3.82 10x6/uL (4.20-6.10); RDW 15.3 % (11.5-14.5); WBC 6.5 10x3/uL (4.8-10.8)
[2019-08-30 05:15] LABS: ALBUMIN 2.1 g/dL (3.4-5.0); BILIRUBIN - TOTAL 0.35 mg/dL (0.2-1.3); CARBON DIOXIDE 23.6 mmol/L (21.0-32.0); CREATININE - SERUM 1.2 mg/dL (0.6-1.3); PROTEIN - SERUM 5.2 g/dL (6.4-8.2)
[2019-08-30 05:16] LABS: ANION GAP 8.7 mmol/L (8-16); CALCIUM 6.9 mg/dL (8.5-10.1); POTASSIUM - SERUM 5.3 mmol/L (3.5-5.1)
[2019-08-30 08:42] VITALS: BP 144/79
[2019-08-30 11:09] LABS: FUNGUS STAIN Final report (())
[2019-08-30] MEDS ORDERED: BACTRIM DS PO (12:14)
[2019-08-30] MEDS ORDERED: MUCINEX600 MG PO (12:17)
[2019-08-30] MEDS ORDERED: TESSALON PERLE100 MG PO (12:17)
[2019-08-30] MEDS ORDERED: PREDNISONE10 MG PO (12:19)
[2019-08-30] MEDS ORDERED: FEXOFENADINE HC60 MG PO (12:20)
[2019-08-30] MEDS ORDERED: ALBUTEROL SULF8.5 GM INH (12:21)
--- NOTE | 2019-08-30 12:51 | NUR ---
Nutrition Follow-up: Pt reports overall good appetite/PO intake. Denies N/V/C/D. Diet: Cardiac Wt: 212# (08/29); 209# (08/27); 211# (08/21) Last BM: 08/27 per pt Labs noted: Na 134, K+ 5.3, Glu 145, Ca 6.9, Alb 2.1 Meds noted: Prednisone, Pepcid, NS @ 30, electrolyte protocol -Encourage PO intake and honor food preferences within diet restrictions. -Monitor wt; noted daily wts ordered. -RD following.
--- NOTE | 2019-08-30 12:52 | NUR ---
OT NOTE: PT DOING VERY WELL TODAY. TOILETING WITH SBA; IN ROOM AMBULATION WITH SBA; AMB THROUGHOUT HALLWAY WITH GAIT BELT, CGA, AND ASSIST WITH EQUIP WITH 02 AT 2 L.. DID NOT REQUIRE REST BREAK AND MAINTAIN SATS AT 90%.. PT ALSO AMB AT JUST SLIGHTLY UNDER NORMAL PACE ( PT HAS BEEN AMB SLOWLY WITH SMALL STEPS.. GAIT PATTERN NORMALIZED NOW) NOY GALVEZ, OTR/L [phone]
[2019-08-30 13:21] VITALS: BP 146/73
--- NOTE | 2019-08-30 13:31 | MORECARE ---
CASE MANAGEMENT DISCHARGE SUMMARY PATIENT: CADENCE ACEVES UNIT: [id number] ADM DATE: 08/20/19 AGE: 59 : 58 SEX: M ROOM/BED: D.2151 AUTHOR: CHRISTOPHERDOC PHYSICIAN: REFERRING PHYSICIAN: CARINA KERN MD DATE OF SERVICE: 08/30/19 Discharge Plan Patient Name: CADENCE ACEVES Facility: [facility]:[place] : 1960 Planned Disposition: Home or Self Care Anticipated Discharge Date: Discharge Date: Expected LOS: Initial Reviewer: [email or web address] Initial Review Date: 08/20/2019 Generated: 08/30/19 2:30 pm DCP- Discharge Planning Updated by [email or web address]: Angella Maher on 08/22/19 11:[address] Patient Name: CADENCE ACEVES Admission Status: ER Accout number: [id number] Admission Date: 08-20-2019 : 1960 Admission Diagnosis:PNEUMONIA, UNSPECIFIED ORGANISM Attending: CARINA KERN Current LOS: 2 Anticipated DC Date: Planned Disposition: Home or Self Care Primary Insurance: [employer] ANA PAULA Discharge Planning Comments: ANTICIPATED DC NEEDS: POSSIBLE HOME HEALTH, AND NEBULIZER/O2 CM met with patient. to complete initial dc planning assessment. CM educated patient on the CM role and verbal consent given by patient to complete assessment. CM verified patient's address, phone number, and emergency contact phone numbers. The current physical address of the patient is [address] [place] [address], [address]. Patient lives at home with his Betty Chamberlain . Mr Aceves has a cane, and nebulizer at home. States he has never used breathing treatments at home. He inherited the nebulizer from his mother when she passed. States he has over 300 units of Albuterol at home. Provided teaching about using albuterol safely. Patient states he is weak and feels he may need some extra help at home. [facility] signed for [facility], and [facility] for the anticipated need of home O2 and nebs. [facility] [phone] and [facility] [phone]. CM faxed referral to [facility] and [facility]. At discharge patient plans to return home and feels this is a safe discharge. CM will continue to follow and will assist as needed with dc plans/needs. Doping Supervisor: Angella Maher DCPIA - Discharge Planning Initial Assessment Updated by [email or web address]: Angella Maher on 08/22/19 12:13 pm * Is the patient Alert and Oriented? Yes * How many steps to enter\exit or inside your home? 3/0 * PCP ARNEL * [facility]- * Preadmission Environment Home with Family * ADLs Independent * Equipment Nebulizer * List name and contact numbers for known caregivers / representatives who currently or will assist patient after discharge: BETTY CHAMBERLAIN () [phone] * Verbal permission to speak to the caregivers and representatives has been obtained from the patient. Yes * Community resources currently utilized None * Additional services required to return to the preadmission environment? Yes * Can the patient safely return to the preadmission environment? Yes * Has this patient been hospitalized within the prior 30 days at any hospital? No Coverage Notice Reviewer: [id number] - Angella Maher Notice Issued Date-Time: 08/22/2019 10:35 Notice Type: Patient Choice Letter Notice Delivered To: Other Relationship to Patient: Match Marker Name: Delivery Method: HAND - Hand Delivered Ivy Days: Prior Verbal Notification: Recipient Understood Notice: Yes Recipient Signature: Yes Med Rec Note Co-signed by Attending: Coverage Notice Comment: radha signed for [facility] walker and prem Gonzales DP export: 08/22/19 12:08 p Patient Name: CADENCE ACEVES Page [phone] at 1331 All edits/amendments must be made on the electronic document DICTATION DATE: 08/30/19 1330 SENIOR ACCOUNT REPRESENTATIVE: RADHA 08/30/19 1330 RPT#: [id number] DC DATE: STATUS: ADM IN [facility] [address] [place] [address] END OF REPORT
--- NOTE | 2019-08-30 14:04 | MORECARE ---
CASE MANAGEMENT DISCHARGE SUMMARY PATIENT: CADENCE ACEVES UNIT: [id number] ADM DATE: 08/20/19 AGE: 59 : 58 SEX: M ROOM/BED: D.1818 AUTHOR: CHRISTOPHERDOC PHYSICIAN: REFERRING PHYSICIAN: CARINA KERN MD DATE OF SERVICE: 08/30/19 Discharge Plan Patient Name: CADENCE ACEVES Facility: [facility]:[place] : 1960 Planned Disposition: Home or Self Care Anticipated Discharge Date: Discharge Date: Expected LOS: Initial Reviewer: [id number] Initial Review Date: 08/20/2019 Generated: 08/30/19 3:03 pm DCP- Discharge Planning Updated by [email or web address]: Angella Maher on 08/22/19 11:[address] Patient Name: CADENCE ACEVES Admission Status: ER Accout number: [id number] Admission Date: 08-20-2019 : 1960 Admission Diagnosis:PNEUMONIA, UNSPECIFIED ORGANISM Attending: CARINA KERN Current LOS: 2 Anticipated DC Date: Planned Disposition: Home or Self Care Primary Insurance: [facility] PRIVATE OPTIONS ANA PAULA Discharge Planning Comments: ANTICIPATED DC NEEDS: POSSIBLE HOME HEALTH, AND NEBULIZER/O2 CM met with patient. to complete initial dc planning assessment. CM educated patient on the CM role and verbal consent given by patient to complete assessment. CM verified patient's address, phone number, and emergency contact phone numbers. The current physical address of the patient is [address] [place] [address], [address]. Patient lives at home with his Betty Chamberlain . Mr Aceves has a cane, and nebulizer at home. States he has never used breathing treatments at home. He inherited the nebulizer from his mother when she passed. States he has over 300 units of Albuterol at home. Provided teaching about using albuterol safely. Patient states he is weak and feels he may need some extra help at home. [facility] signed for [facility], and [facility] for the anticipated need of home O2 and nebs. [facility] [phone] and [facility] [phone]. CM faxed referral to [facility] and [facility]. At discharge patient plans to return home and feels this is a safe discharge. CM will continue to follow and will assist as needed with dc plans/needs. Ibm Mainframe Developer: Angella Maher DCPIA - Discharge Planning Initial Assessment Updated by [email or web address]: Angella Maher on 08/22/19 12:13 pm * Is the patient Alert and Oriented? Yes * How many steps to enter\exit or inside your home? 3/0 * PCP ARNEL * Pharmacy [facility]- * Preadmission Environment Home with Family * ADLs Independent * Equipment Nebulizer * List name and contact numbers for known caregivers / representatives who currently or will assist patient after discharge: BETTY CHAMBERLAIN () [phone] * Verbal permission to speak to the caregivers and representatives has been obtained from the patient. Yes * Community resources currently utilized None * Additional services required to return to the preadmission environment? Yes * Can the patient safely return to the preadmission environment? Yes * Has this patient been hospitalized within the prior 30 days at any hospital? 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
--- NOTE | 2019-08-30 14:21 | MORECARE ---
CASE MANAGEMENT DISCHARGE SUMMARY PATIENT: CADENCE ACEVES UNIT: [id number] ADM DATE: 08/20/19 AGE: 59 : 58 SEX: M ROOM/BED: D.2770 AUTHOR: CHRISTOPHERDOC PHYSICIAN: REFERRING PHYSICIAN: CARINA KERN MD DATE OF SERVICE: 08/30/19 Discharge Plan Patient Name: CADENCE ACEVES Facility: [facility]:[place] : 1960 Planned Disposition: Home or Self Care Anticipated Discharge Date: Discharge Date: Expected LOS: Initial Reviewer: [id number] Initial Review Date: 08/20/2019 Generated: 08/30/19 3:20 pm DCP- Discharge Planning Updated by [email or web address]: Angella Maher on 08/22/19 11:[address] Patient Name: CAEDNCE ACEVES Admission Status: ER Accout number: [id number] Admission Date: 08-20-2019 : 1960 Admission Diagnosis:PNEUMONIA, UNSPECIFIED ORGANISM Attending: CARINA KERN Current LOS: 2 Anticipated DC Date: Planned Disposition: Home or Self Care Primary Insurance: [facility] PRIVATE OPTIONS ANA PAULA Discharge Planning Comments: ANTICIPATED DC NEEDS: POSSIBLE HOME HEALTH, AND NEBULIZER/O2 CM met with patient. to complete initial dc planning assessment. CM educated patient on the CM role and verbal consent given by patient to complete assessment. CM verified patient's address, phone number, and emergency contact phone numbers. The current physical address of the patient is [address] [place] [address], [address]. Patient lives at home with his Betty Chamberlain . Mr Aceves has a cane, and nebulizer at home. States he has never used breathing treatments at home. He inherited the nebulizer from his mother when she passed. States he has over 300 units of Albuterol at home. Provided teaching about using albuterol safely. Patient states he is weak and feels he may need some extra help at home. [facility] signed for [facility], and [facility] for the anticipated need of home O2 and nebs. [facility] [phone] and [facility] [phone]. CM faxed referral to [facility] and [facility]. At discharge patient plans to return home and feels this is a safe discharge. CM will continue to follow and will assist as needed with dc plans/needs. Car Deliverer: Angella Maher DCPIA - Discharge Planning Initial Assessment Updated by [email or web address]: Angella Maher on 08/22/19 12:13 pm * Is the patient Alert and Oriented? Yes * How many steps to enter\exit or inside your home? 3/0 * PCP ARNEL * Pharmacy [facility]- * Preadmission Environment Home with Family * ADLs Independent * Equipment Nebulizer * List name and contact numbers for known caregivers / representatives who currently or will assist patient after discharge: BETTY CHAMBERLAIN () [phone] * Verbal permission to speak to the caregivers and representatives has been obtained from the patient. Yes * Community resources currently utilized None * Additional services required to return to the preadmission environment? Yes * Can the patient safely return to the preadmission environment? Yes * Has this patient been hospitalized within the prior 30 days at any hospital? 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
--- NOTE | 2019-08-30 14:29 | MORECARE ---
CASE MANAGEMENT DISCHARGE SUMMARY PATIENT: CADENCE ACEVES UNIT: [id number] ADM DATE: 08/20/19 AGE: 59 : 58 SEX: M ROOM/BED: D.2134 AUTHOR: ROSSI WHITE PHYSICIAN: REFERRING PHYSICIAN: CARINA KERN MD DATE OF SERVICE: 08/30/19 Discharge Plan Patient Name: CADENCE ACEVES Facility: [facility]:[place] : 1960 Planned Disposition: Home or Self Care Anticipated Discharge Date: Discharge Date: Expected LOS: Initial Reviewer: [id number] Initial Review Date: 08/20/2019 Generated: 08/30/19 3:29 pm Comments DCP- Discharge Planning Updated by [email or web address]: Angella Maher on 08/30/19 1:[address] Patient Name: CADENCE ACEVES Encounter No: [id number] : 1960 Primary Insurance: [employer] PRIVATE OPTIONS ANA PAULA Anticipated DC Date: Planned Disposition: Home or Self Care External Planned Provider: : DCP follow-up note: CM met with pt to discuss final DC plan. Pt states he is feeling much better, and is ready to go home. Spoke with Neida at [facility] for anticipated dc today. They will see pt tomorrow to for start of service. Spoke with Marta at [place] [address] and [facility]. [place] [phone] and [facility] [phone]. Patient in agreement with discharge plan. No changes to plan. Angella Maher MSN,RN,CM DCP- Discharge Planning Updated by [id number]: Angella Maher on 08/22/19 11:[address] Patient Name: CADENCE ACEVES Admission Status: ER Accout number: [id number] Admission Date: 08-20-2019 : 1960 Admission Diagnosis:PNEUMONIA, UNSPECIFIED ORGANISM Attending: CARINA KERN Current LOS: 2 Anticipated DC Date: Planned Disposition: Home or Self Care Primary Insurance: [employer] ANA PAULA Discharge Planning Comments: ANTICIPATED DC NEEDS: POSSIBLE HOME HEALTH, AND NEBULIZER/O2 CM met with patient. to complete initial dc planning assessment. CM educated patient on the CM role and verbal consent given by patient to complete assessment. CM verified patient's address, phone number, and emergency contact phone numbers. The current physical address of the patient is [address] [place] [address], [address]. Patient lives at home with his Betty Chamberlain . Mr Aceves has a cane, and nebulizer at home. States he has never used breathing treatments at home. He inherited the nebulizer from his mother when she passed. States he has over 300 units of Albuterol at home. Provided teaching about using albuterol safely. Patient states he is weak and feels he may need some extra help at home. [facility] signed for [facility], and [facility] for the anticipated need of home O2 and nebs. [place] [phone] and [facility] [phone]. CM faxed referral to [facility] and [facility]. At discharge patient plans to return home and feels this is a safe discharge. CM will continue to follow and will assist as needed with dc plans/needs. Plant Changer: Angella Maher DCPIA - Discharge Planning Initial Assessment Updated by [email or web address]: Angella Maher on 08/22/19 12:13 pm * Is the patient Alert and Oriented? Yes * How many steps to enter\exit or inside your home? 3/0 * PCP ARNEL * Pharmacy [facility] * Preadmission Environment Home with Family * ADLs Independent * Equipment Nebulizer * List name and contact numbers for known caregivers / representatives who currently or will assist patient after discharge: BETTY CHAMBERLAIN () [phone] * Verbal permission to speak to the caregivers and representatives has been obtained from the patient. Yes * Community resources currently utilized None * Additional services required to return to the preadmission environment? Yes * Can the patient safely return to the preadmission environment? Yes * Has this patient been hospitalized within the prior 30 days at any hospital? 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 [address] [place] [address] END OF REPORT
[2019-08-30 15:10] LABS: ANCA - ANTIMYELOPEROXIDASE <9.0 U/mL (0.0-9.0); ANCA - ANTIPROTEINASE 3 <3.5 U/mL (0.0-3.5); ANCA - ATYPICAL <1:20 titer (Neg:<1:20); ANCA - CYTOPLASMIC <1:20 titer (Neg:<1:20); ANCA - PERINUCLEAR <1:20 titer (Neg:<1:20)
--- NOTE | 2019-08-30 16:50 | NUR ---
OT NOTE: PT COMPLETED BUE AROM EXS TOLERATED. PT COMPLETED BED MOB TASKS WITH [facility]V. PT STATED HE IS GOING HOME TODAY. [phone] [address]
[2019-09-02 16:08] LABS: MITOCHONDRIAL ANTIBODY <20.0 Units (0.0-20.0); SMOOTH MUSCLE ABS (ACTIN) 65 Units (0-19)
--- NOTE | 2019-09-02 16:21 | MORECARE ---
CASE MANAGEMENT DISCHARGE SUMMARY PATIENT: CADENCE ACEVES UNIT: [id number] ADM DATE: 08/20/19 AGE: 59 : 58 SEX: M ROOM/BED: D.2134 AUTHOR: ROSSI WHITE PHYSICIAN: REFERRING PHYSICIAN: CARINA KERN MD DATE OF SERVICE: 09/02/19 Discharge Plan Patient Name: CADENCE ACEVES Facility: [facility]:[place] : 1960 Planned Disposition: Home or Self Care Anticipated Discharge Date: Discharge Date: 08/30/2019 Expected LOS: Initial Reviewer: [id number] Initial Review Date: 08/20/2019 Generated: 09/02/19 5:20 pm Comments DCP- Discharge Planning Updated by [email or web address]: Angella Maher on 08/30/19 1:[address] Patient Name: CADENCE ACEVES Encounter No: [id number] : 1960 Primary Insurance: [employer] ANA PAULA Anticipated DC Date: Planned Disposition: Home or Self Care External Planned Provider: : DCP follow-up note: CM met with pt to discuss final DC plan. Pt states he is feeling much better, and is ready to go home. Spoke with Neida at [facility] for anticipated dc today. They will see pt tomorrow to for start of service. Spoke with Marta at [place] [address] [facility]. [place] [phone] and [facility] [phone]. Patient in agreement with discharge plan. No changes to plan. Angella Maher MSN,RN,CM DCP- Discharge Planning Updated by [id number]: Angella Maher on 08/22/19 11:[address] Patient Name: CADENCE ACEVES Admission Status: ER Accout number: [id number] Admission Date: 08-20-2019 : 1960 Admission Diagnosis:PNEUMONIA, UNSPECIFIED ORGANISM Attending: CARINA KERN Current LOS: 2 Anticipated DC Date: Planned Disposition: Home or Self Care Primary Insurance: [employer] ANA PAULA Discharge Planning Comments: ANTICIPATED DC NEEDS: POSSIBLE HOME HEALTH, AND NEBULIZER/O2 CM met with patient. to complete initial dc planning assessment. CM educated patient on the CM role and verbal consent given by patient to complete assessment. CM verified patient's address, phone number, and emergency contact phone numbers. The current physical address of the patient is [address] [place] [address], [address]. Patient lives at home with his Betty Chamberlain . Mr Aceves has a cane, and nebulizer at home. States he has never used breathing treatments at home. He inherited the nebulizer from his mother when she passed. States he has over 300 units of Albuterol at home. Provided teaching about using albuterol safely. Patient states he is weak and feels he may need some extra help at home. [facility] signed for [facility], and Janice for the anticipated need of home O2 and nebs. [place] [phone] and [facility] [phone]. CM faxed referral to [facility] and [facility]. At discharge patient plans to return home and feels this is a safe discharge. CM will continue to follow and will assist as needed with dc plans/needs. Journal Box Inspector: Angella Maher DCPIA - Discharge Planning Initial Assessment Updated by [email or web address]: Angella Maher on 08/22/19 12:13 pm * Is the patient Alert and Oriented? Yes * How many steps to enter\exit or inside your home? 3/0 * PCP ARNEL * Pharmacy [facility]- * Preadmission Environment Home with Family * ADLs Independent * Equipment Nebulizer * List name and contact numbers for known caregivers / representatives who currently or will assist patient after discharge: BETTY CHAMBERLAIN () [phone] * Verbal permission to speak to the caregivers and representatives has been obtained from the patient. Yes * Community resources currently utilized None * Additional services required to return to the preadmission environment? Yes * Can the patient safely return to the preadmission environment? Yes * Has this patient been hospitalized within the prior 30 days at any hospital? No Coverage Notice Reviewer: [id number] - Angella Maher Notice Issued Date-Time: 08/22/2019 10:35 Notice Type: Patient Choice Letter Notice Delivered To: Other Relationship to Patient: Licensed Optician Name: Delivery Method: HAND - Hand Delivered Ivy Days: Prior Verbal Notification: Recipient Understood Notice: Yes Recipient Signature: Yes Med Rec Note Co-signed by Attending: Coverage Notice Comment: opal signed for [facility] walker, and janice Gonzales DP export: 08/30/19 1:29 p Patient Name: CADENCE ACEVES Page 42452 at 1621 All edits/amendments must be made on the electronic document DICTATION DATE: 09/02/191619 PLANER SETUP OPERATOR: RADHA 09/02/19 1620 RPT#: [id number] DC DATE:08/30/19 STATUS: DIS IN [facility] [address] [place] [address] END OF REPORT
== END 2019-08-30 16:47 | disposition home health service (06) | DRG 975 ==
LOC: D.ER 12:35 → D.M2 15:50
PROVIDERS: Family Medicine; Internal Medicine Gastroenterology; Internal Medicine Pulmonary Disease; Specialist; ADMIT Internal Medicine Nephrology; ATTEND Internal Medicine Nephrology
DX: B20 Human immunodeficiency virus [HIV] disease (principal); J18.9 Pneumonia, unspecified organism; E87.1 Hypo-osmolality and hyponatremia; A41.9 Sepsis, unspecified organism; N17.9 Acute kidney failure, unspecified; E44.0 Moderate protein-calorie malnutrition; A04.5 Campylobacter enteritis; J43.9 Emphysema, unspecified; N18.2 Chronic kidney disease, stage 2 (mild); Z68.28 Body mass index [BMI] 28.0-28.9, adult; K80.20 Calculus of gallbladder without cholecystitis without obstruction

== ENCOUNTER → 2019-09-24 11:08 | Outpatient (CLI) | payer MEDICAID ==
[2019-08-28 17:12] VITALS: BMI 28.8
[~2019-09-24 11:08] MED LIST: ALBUTEROL SULF8.5 GM INH; BACTRIM 400-801 TAB PO; BACTRIM DS PO; BIKTARVY 50-201 EACH PO; FEXOFENADINE HC60 MG PO; HYDROCODONE-IB1 EAC3 PO; LIPITOR20 MG PO; MUCINEX600 MG PO; PREDNISONE10 MG PO; TESSALON PERLE100 MG PO
== END | disposition home or self-care (01) ==
LOC: D.LAB 11:08
PROVIDERS: ATTEND Internal Medicine Pulmonary Disease
DX: Z11.59 Encounter for screening for other viral diseases (principal)

== ENCOUNTER → 2019-09-26 11:21 | Outpatient (CLI) | payer MEDICAID ==
[2019-08-28 17:12] VITALS: BMI 28.8
== END | disposition home or self-care (01) ==
LOC: D.RAD 11:21 → D.RT 12:00
PROVIDERS: ATTEND Internal Medicine Pulmonary Disease
DX: R06.89 Other abnormalities of breathing (principal); J44.9 Chronic obstructive pulmonary disease, unspecified; B20 Human immunodeficiency virus [HIV] disease; E78.5 Hyperlipidemia, unspecified

== ENCOUNTER → 2019-10-30 09:44 | Outpatient (CLI) | payer MEDICAID ==
[2019-08-28 17:12] VITALS: BMI 28.8
== END | disposition home or self-care (01) ==
LOC: D.ECHO 09:35
PROVIDERS: ATTEND Internal Medicine Pulmonary Disease
DX: I27.20 Pulmonary hypertension, unspecified (principal)

== ENCOUNTER → 2019-11-18 11:27 | Outpatient (CLI) | payer MEDICAID ==
[2019-08-28 17:12] VITALS: BMI 28.8
== END | disposition home or self-care (01) ==
LOC: D.RAD 11:27
PROVIDERS: ATTEND Internal Medicine Pulmonary Disease
DX: J18.9 Pneumonia, unspecified organism (principal)

== ENCOUNTER → 2020-01-14 08:37 | Outpatient (CLI) | payer MEDICAID ==
[2019-08-28 17:12] VITALS: BMI 28.8
== END | disposition home or self-care (01) ==
LOC: D.CT 08:37
PROVIDERS: ATTEND Internal Medicine Pulmonary Disease
DX: J84.9 Interstitial pulmonary disease, unspecified (principal)